=== PATIENT | female | born 1960 | race Caucasian/White ===

== ENCOUNTER 2016-09-23 17:43 | Emergency (ER) | payer OTHER ==
[~2016-09-23] VITALS: Ht 167.6 cm; Wt 127.0 kg
[~2016-09-23 17:43] MED LIST: ACCUPRIL10 MG ORAL; BACTRIM DS TAB1 EAC1 ORAL; CLINDAMYCIN HC300 MG ORAL; ENALAPRIL MALEAT5 MG ORAL; INVOKANA100 MG PO; KEFLEX500 MG ORAL; LANTUS SOL100 UNIT/1 SUBQ; SILVADENE CREAM50 GM TOP; VICTOZA 3-0.6 MG/0.1 SQ
[2016-09-23] MEDS ORDERED: traMADol 50mg tab ORAL ONE (18:45)
[2016-09-23] MEDS ORDERED: TRAMADOL HCL50 MG ORAL (19:16)
[2016-09-23 19:29] VITALS: BP 120/80
--- NOTE | 2016-09-23 20:50 | Emergency Room Report ---
History of Present Illness General Chief Complaint: Multiple Trauma/Fall Source: Patient Present Illness HPI The patient is a 55-year-old female presenting with left hip and buttock pain after tripping and falling today. The patient states that she was walking backwards, tripped, and fell onto the left buttock. Pain is an 8 of 10 dull ache it does not radiate from this area. Pain worse with touch and walking. Patient denies prior injury to this area. The patient states that she took 800 mg of Motrin which did not help. Patient denies other symptoms including numbness/tingling, N, V, F, chills, SOB, CP Allergies: Coded Allergies: SITAGLIPTIN (Verified Allergy, Severe, rash, 02/20/14) Patient History Past Medical History: see triage record Pertinent Family History: none Now: No Reviewed Nursing Documentation: PMH: Agreed, PSxH: Agreed Nursing Documentation-PMH Past Medical History: No History, Except For Hx Hypertension: Yes Hx Diabetes: Yes Review of Systems All Other Systems: negative except mentioned in HPI Physical Exam Vital Signs Date Time Temp Pulse Resp B/P Pulse Ox O2 Delivery O2 Flow Rate FiO2 09/23/16 18:09 98.1 76 14 127/82 100 Room Air Sp02 EP Interpretation: reviewed, normal General Appearance: no apparent distress, alert, GCS 15, non-toxic Head: normocephalic, atraumatic Eyes: bilateral eye PERRL, bilateral eye normal inspection ENT: hearing grossly normal, normal pharynx, no angioedema, normal voice Musculoskeletal: back normal, gait/station normal, normal range of motion, tender - TTP over L buttock and proximal hamstring Neurologic: alert, oriented x3, responsive, motor strength/tone normal, sensory intact, speech normal Psychiatric: judgement/insight normal, memory normal, mood/affect normal, no suicidal/homicidal ideation Skin: normal color, no rash, warm/dry, well hydrated Lymphatic: no adenopathy Medical Decision Making PA Attestation Dr. Perales is my supervising physician. Patient management was discussed with my supervising physician Diagnostic Impression: Primary Impression: Contusion of hip, left ER Course The patient is a 55-year-old female presenting with left hip and buttock pain after tripping and falling today DDx: Ddx considered include but not limited to sprain/strain, fracture, contusion, dislocation PE: vitals WNL. NAD No leg length discrepancy. Full AROM of the L knee and Hip. No ecchymosis. No edema. There is tenderness to palpation over the left mid buttock and proximal hamstring. No tenderness to palpation over the midline back or lateral hip. X-ray of the hip is unremarkable Patient is given tramadol for pain with good relief The patient is discharged home with a prescription for tramadol and followup with PMD. ER precautions are given Other X-Ray Diagnostic Results Other X-Ray Diagnostic Results : X-Ray Ordered: L hip Date: Sep 23, 2016 EP Interpretation: Yes Findings: no fractures, no dislocation, no soft tissue swelling Number of Views: 2 PA Scribe Text I am acting as scribe for my supervising physician. My supervising physician's interpretation of the L hip xrays are there are no fractures, dislocations or soft tissue swelling. Last Vital Signs Date Time Temp Pulse Resp B/P Pulse Ox O2 Delivery O2 Flow Rate FiO2 09/23/16 19:29 69 16 120/80 94 Room Air 09/23/16 19:29 98.1 Status: improved Disposition: HOME, SELF-CARE Condition: Improved Scripts Tramadol Hcl* (ULTRAM*) 50 Mg Tablet 50 MG ORAL Q6H Y for For Pain, #15 TAB 0 Refills Prov: KODI CAMPA 09/23/16 Referrals: NON PHYSICIAN (PCP) Patient Instructions: Hip Pain Additional Instructions: I discussed my findings with the patient. All questions and concerns have been answered. Treatment and medication compliance have been addressed. I advised the patient that they need to follow up with PMD in 3-5 days. Return to ED if pain remains or worsens, numbness or tingling occurs, new rash is noticed, fever is noticed, or if needed for any reason. Patient verbalized understanding of discharge instructions. KODI CAMPA Sep 23, 2016 20:50
--- NOTE | 2016-09-24 10:39 | Diagnostic Imaging Report ---
Indication: PAIN Technique: 2 views of the left hip Comparison: Reference made to CT scan 11/26/2011 Findings: There is a 1 cm diameter lucency of the inferior pubic bone, seen on both views.. No corresponding abnormality is seen in the same area on prior CT of November 2011. No evidence of acute fracture. No dislocation. Joint spaces are preserved. Impression: No acute bony trauma 1 cm lucency of the left inferior pubic bone, not evident on prior CT scan of . Recommend bone scan for further evaluation to assess for metabolic activity and therefore significance. This finding was not described on the emergency room physician preliminary report, was phoned to Dr. More at the time of interpretation
== END 2016-09-23 19:30 | disposition home or self-care (01) ==
LOC: EMR 18:42
DX: S70.02XA Contusion of left hip, initial encounter (principal); W01.0XXA Fall on same level from slipping, tripping and stumbling without subsequent striking against object, initial encounter; Y92.9 Unspecified place or not applicable; I10 Essential (primary) hypertension; E11.9 Type 2 diabetes mellitus without complications
CPT/HCPCS: 73502; 99284